=== PATIENT | female | born 1965 | race African-American/Black ===

== ENCOUNTER → 2024-09-20 | Day surgery (SDC) | payer MEDICARE ==
[~2024-09-20] MED LIST: AMANTADINE100 MG PO; ESMOLOL HCL 100MG/10ML 10 MG/ML VIAL ONE; FLUOXETINE HCL10 MG PO; IRBESARTAN-HCT1 EAC1 PO; LACTATED RINGER'S 1,000 ML ONE; LIDOCAINE HCL 1% 2 ML AMP ONE; LIDOCAINE HCL 2% LOCAL INJ 5 ML SDV VIAL INJ ONE; OLANZAPINE5 MG PO; PHENYLEPHRINE HCL 1% 10 MG/ML VIAL ONE; POTASSIUM CITR10 MEQ PO; PROPOFOL IV EMULSION 10 MG/ML 20 ML VIAL ONE; PROPOFOL IV EMULSION 50 ML IV ONE; TRAZODONE HCL100 MG PO
[2024-09-20] MEDS: LACTATED RINGER'S 1,000 ML ONE (10:54)
[2024-09-20 11:10] LABS: BASOPHILS % 0.3 % (0.0-1.0); EOSINOPHILS # (AUTO) 0.1 (0.0-0.4); EOSINOPHILS % 0.9 % (0.0-6.0); HEMATOCRIT 29.7 % (34.2-44.1); HEMOGLOBIN 9.3 g/dL (12.0-16.0); LYMPHOCYTES # (AUTO) 0.9 (1.0-3.2); LYMPHOCYTES % 13.3 % (18.0-39.1); MEAN CORPUSCULAR HEMOGLOBIN 24.9 pg (28-32); MEAN CORPUSCULAR HGB CONC 31.3 g/dL (31-35); MEAN CORPUSCULAR VOLUME 79.4 fL (81-99); MONOCYTES # (AUTO) 0.5 (0.2-0.8); MONOCYTES % 7.9 % (4.4-11.3); NEUTROPHILS # (AUTO) 5.3 (2.1-6.9); NEUTROPHILS % 76.9 % (38.7-80.0); PLATELET COUNT 248 x10e3/uL (140-360); RED BLOOD COUNT 3.74 x10e6/uL (3.6-5.1); RED CELL DISTRIBUTION WIDTH 19.9 % (11.7-14.4); WHITE BLOOD COUNT 6.84 x10e3/uL (4.8-10.8)
[2024-09-20 11:25] LABS: ANION GAP 20.1 mmol/L (8-16); CREATININE, SERUM 2.2 mg/dL (0.57-1.11)
[2024-09-20 11:26] LABS: POTASSIUM 3.1 mmol/L (3.5-5.1)
[2024-09-20 13:16] VITALS: TEMP 97.8
[2024-09-20 13:30] VITALS: BP 128/89; PULSE 83; RESP 16; O2SAT 99
== END | disposition home or self-care (01) ==
LOC: OR 09:26
PROVIDERS: ATTEND Internal Medicine Gastroenterology
DX: K29.50 Unspecified chronic gastritis without bleeding (principal); K28.9 Gastrojejunal ulcer, unspecified as acute or chronic, without hemorrhage or perforation; K21.00 Gastro-esophageal reflux disease with esophagitis, without bleeding; K57.30 Diverticulosis of large intestine without perforation or abscess without bleeding; K59.00 Constipation, unspecified; R19.5 Other fecal abnormalities; Z98.84 Bariatric surgery status; Z93.3 Colostomy status; G47.33 Obstructive sleep apnea (adult) (pediatric); R63.4 Abnormal weight loss; I49.9 Cardiac arrhythmia, unspecified; I12.9 Hypertensive chronic kidney disease with stage 1 through stage 4 chronic kidney disease, or unspecified chronic kidney disease; N18.4 Chronic kidney disease, stage 4 (severe); R25.1 Tremor, unspecified; M54.9 Dorsalgia, unspecified; E66.01 Morbid (severe) obesity due to excess calories; F41.9 Anxiety disorder, unspecified; F32.A Depression, unspecified; F17.200 Nicotine dependence, unspecified, uncomplicated; Z79.899 Other long term (current) drug therapy; Z68.30 Body mass index [BMI] 30.0-30.9, adult
CPT/HCPCS: 36415; 43239; 44389; 80048; 85025; 88305; 88342; 93005; J2003 ×2; J2371; J2704 ×2; J7121; 45380